=== PATIENT | female | born 1965 | race Caucasian/White ===

== ENCOUNTER 2017-08-25 00:41 | Emergency (ER) | payer MEDICAID, OTHER ==
[~2017-08-25] VITALS: Ht 165.1 cm; Wt 108.0 kg
[~2017-08-25 00:41] MED LIST: AMLO5TAB2 PO; ATOR10TA PO; BLOO-668 IN; CLOP75TA2 PO; DOCU-270 PO; ESCI10TA PO; FURO-144 PO; GABA-534 PO; HYDR-3326 PO; METF500T4 PO; NYST15PO3 TP; POTA10TA15 PO
--- NOTE | 2017-08-25 00:50 | NUR ---
PT TO ER BED 5. PT BIB PA FROM [facility], [facility] OUT OF WC X 6 HOURS AGO. PAIN IN R HIP. -LOC. VSS/RESP EVEN UNLABORED/NAD NOTED/SKIN WARM AND DRY/DENIES N-V-D/AOX4. AWAITING MD LUQUE.
--- NOTE | 2017-08-25 01:00 | NUR ---
AT BEDSIDE CONRAD PAGE
--- NOTE | 2017-08-25 01:10 | NUR ---
XRAY AT BEDSIDE.
[2017-08-25] MEDS ORDERED: ACETAMINOPHEN 325 MG TABLET ONE (01:53)
[2017-08-25] MEDS: ACETAMINOPHEN 325 MG TABLET PO ONE (01:55)
--- NOTE | 2017-08-25 02:06 | NUR ---
[facility] ETA 1HR 15MIN.
--- NOTE | 2017-08-25 03:53 | NUR ---
REPORT GIVEN TO RN WITH SHAMIR FOR [facility].
[2017-08-25 03:58] VITALS: BP 90/56
== END 2017-08-25 04:00 | disposition home or self-care (01) ==
LOC: ER 00:42
DX: S70.01XA Contusion of right hip, initial encounter (principal); I10 Essential (primary) hypertension; E11.9 Type 2 diabetes mellitus without complications; Z86.73 Personal history of transient ischemic attack (TIA), and cerebral infarction without residual deficits; Z88.0 Allergy status to penicillin; Z99.3 Dependence on wheelchair; Z79.84 Long term (current) use of oral hypoglycemic drugs; W01.0XXA Fall on same level from slipping, tripping and stumbling without subsequent striking against object, initial encounter; Y93.89 Activity, other specified; Y92.89 Other specified places as the place of occurrence of the external cause; Y99.8 Other external cause status
CPT/HCPCS: 73502; A4606; Z7610

== ENCOUNTER 2020-04-18 11:47 | Emergency (ER) | payer OTHER ==
[~2020-04-18] VITALS: Ht 157.5 cm; Wt 65.8 kg
[~2020-04-18 11:47] MED LIST changes: -AMLO5TAB2 PO; +AMLO5TAB9 PO; +CLOP75TA15 PO; -CLOP75TA2 PO; -HYDR-3326 PO; +HYDR-3974 PO; +METF-440 PO; -METF500T4 PO
--- NOTE | 2020-04-18 12:15 | NUR ---
[facility]ODY FROM [facility] TO ER BED 6. AAOX2. NOT IN RESP DISTRESS. BED BOUND. SENT IN FOR COVID TESTING BY THE FACILITY. PT IS AFEBRILE. NO COMPLAINTS OF PAIN. MD WAS AT THE BEDSIDE.
--- NOTE | 2020-04-18 12:38 | NUR ---
COVID SWAB OBTAINED AND SENT TO LAB.
--- NOTE | 2020-04-18 13:11 | NUR ---
COVID RESULT: NEGATIVE
--- NOTE | 2020-04-18 13:21 | NUR ---
[facility] ESTRADA CALLED, SPOKE WITH ERNIE, SHE ACCEPTED THE PATIENT BACK SINCE OUR RAPID COVID TEST IS NEGATIVE
--- NOTE | 2020-04-18 13:32 | NUR ---
[id number] REF#[id number], ETA TO FOLLOW
--- NOTE | 2020-04-18 15:11 | NUR ---
[facility] AT BEDSIDE FOR PT TRANSPORT BACK TO HER FACILITY. REPORT GIVEN. REPORT GIVEN TO ERNIE AT THE FACILITY. PT IS IN STABLE CONDITION FOR TRANSPORT.
[2020-04-18 15:12] VITALS: BP 111/64
== END 2020-04-18 15:12 ==
LOC: ER 11:51
DX: R05 Cough (principal); Z20.828 Contact with and (suspected) exposure to other viral communicable diseases; I69.354 Hemiplegia and hemiparesis following cerebral infarction affecting left non-dominant side; I10 Essential (primary) hypertension; Z79.82 Long term (current) use of aspirin; Z79.899 Other long term (current) drug therapy; Z79.84 Long term (current) use of oral hypoglycemic drugs; E11.9 Type 2 diabetes mellitus without complications; Z88.0 Allergy status to penicillin